=== PATIENT | female | born 1965 | race Caucasian/White ===

== ENCOUNTER 2025-05-03 06:06 | Day surgery (SDC) | payer OTHER ==
[~2025-05-03] VITALS: Ht 160 cm; Wt 64.6 kg
[~2025-05-03 06:06] MED LIST: CYCL10; DOXY100 PO; HYDACE5; METR250 PO; OXYACE5T PO; OXYACE7.5T PO; RXSULTRIDS
[2025-05-03] MEDS ORDERED: LITH300C PO (06:45)
[2025-05-03] MEDS ORDERED: QUET100 PO (06:45)
[2025-05-03] MEDS ORDERED: PROM12.5S (06:45)
[2025-05-03] MEDS ORDERED: Bupivacaine 0.5% W/EPI 1:200000 SDV 30 ML Vial ONE (06:51)
[2025-05-03] MEDS ORDERED: FentaNYL Citrate 50 MCG/ML 2 ML Injection ONE ×2 (06:54→09:56)
[2025-05-03] MEDS ORDERED: Midazolam HCl 1MG / ML 2ML Vial ONE (06:54)
[2025-05-03] MEDS ORDERED: Ondansetron HCl 2 MG / ML 2ML Vial ONE (07:00)
[2025-05-03] MEDS ORDERED: Dexamethasone Sod Phos 10 MG/ML 1ML VIAL ONE (07:00)
--- NOTE | 2025-05-03 07:24 | NUR ---
05/03/[address] INSERTED 22 GUAGE IV INTO RIGHT HAND -
[2025-05-03] MEDS ORDERED: CeFAZolin Sodium 2,000 MG VIAL ONE (07:30)
[2025-05-03] MEDS ORDERED: HYDROmorphone HCl/Pf 1MG SYR ONE (08:02)
--- NOTE | 2025-05-03 09:36 | NUR ---
05/03/25 0936 Michelle Medellin REPORT RECEIVED FROM CHANDA AND RN. PT DROWSY BUT AROUSABLE TO VOICE UPON ARRIVAL
[2025-05-03] MEDS ORDERED: Ketorolac Tromethamine 30mg Vial ONE (09:41)
--- NOTE | 2025-05-03 09:59 | NUR ---
05/03/25 0959 Michelle Medellin PT IN RECLINER, LEFT ARM ELEVATED ON PILLOW AND ICE PACK APPLIED. GLASSES AND EARRINGS RETURNED TO PATIENT. PATIENT PUT EARRINGS IN. PT DECLINED WARM BLANKET.
[2025-05-03] MEDS ORDERED: OxyCODONE 5 mg/Acetamin 325 mg TABLET ONE (10:22)
== END 2025-05-03 10:45 | disposition home or self-care (01) ==
LOC: ORSCSDS 06:06
PROVIDERS: Orthopaedic Surgery
PROC: 0RQT0ZZ Repair Left Carpometacarpal Joint, Open Approach (ICD-10-PCS; principal; 2025-05-03 07:30)
DX: M18.12 Unilateral primary osteoarthritis of first carpometacarpal joint, left hand (principal); F31.9 Bipolar disorder, unspecified; Z79.899 Other long term (current) drug therapy
CPT/HCPCS: A9270; J0690; J1100; J1171; J1885; J2003; J2250; J2405; J2704; J3010; J7120